=== PATIENT | male | born 1980 | race Caucasian/White ===

== ENCOUNTER 2017-06-25 13:55 | Emergency (ER) | payer MEDICAID ==
[2017-06-25 14:07] VITALS: RESP 16; O2SAT 95
[2017-06-25] MEDS ORDERED: LIDOCAINE 2% JELLY 5 ML TUBE ONE (14:39)
[2017-06-25] MEDS ORDERED: LIDOCAINE 2% JELLY 5 ML TUBE TP ONE (14:40)
--- NOTE | 2017-06-25 14:45 | EDPHY ---
H & P Time Seen by Provider: 06/25/17 14:06 HPI/ROS: CHIEF COMPLAINT: Hemorrhoid HISTORY OF PRESENT ILLNESS: Patient states he had a BM last night that was hard. Afterwards he felt some need to go BM again but was unable. This morning felt pain and a lump in the rectal area consistent with previous hemorrhoids. He has had 3 prior last was about a year ago. No other complaints. No nausea or vomiting. No bleeding per rectum. REVIEW OF SYSTEMS: Respiratory: No cough, no dyspnea. Cardiovascular: No chest pain, no palpitations. Gastrointestinal: No vomiting, no abdominal pain. General Appearance: Alert and no distress. Eyes: Pupils equal and round no injection. Gastrointestinal: Abdomen is soft and nontender, no masses, bowel sounds normal. Large external hemorrhoid visible, tender to palpation. Likely internal hemorrhoid visible at anus. Musculoskeletal: Neck is supple and nontender. Extremities have full range of motion and are nontender. Skin: No rashes or lesions. DIFFERENTIAL DIAGNOSIS: After history and physical exam differential diagnosis was considered for thrombosed hemorrhoid, internal hemorrhoid, rectal fissure, perirectal abscess. Patient would likely both internal and external hemorrhoid. Possibly thrombosed. Discussed conservative care with surgical follow-up as indicated on Tuesday. Medical history includes surgery to the hip as 4-year-old. Otherwise noncontributory. Patient uses tobacco, THC. No EtOH. 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 [employer] Smoking Status: Current every day smoker Constitutional: Initial Vital Signs Temperature (C) 36.7 C 06/25/17 14:03 Heart Rate 87 06/25/17 14:03 Respiratory Rate 16 06/25/17 14:03 Blood Pressure 144/87 H 06/25/17 14:03 O2 Sat (%) 95 06/25/17 14:03 Allergies/Adverse Reactions: Penicillins Allergy (Severe, Verified 06/25/17 14:07) Anaphylaxis acetaminophen [From Vicodin] Allergy (Verified 06/25/17 14:07) hydrocodone bitartrate [From Vicodin] Allergy (Verified 06/25/17 14:07) Home Medications: Medication Instructions Recorded NK [No Known Home Meds] 03/20/16 Departure - Departure Clinical Impression: Hemorrhoid prolapse Condition: Good Instructions: Thrombosed Hemorrhoid (ED) Additional Instructions: Use topical lidocaine as instructed. I would also recommend to use topical corticosteroid cream available anop-mly-posivme. Sitz baths frequently as discussed. Additionally you should use a stool softener like Dulcolax or Colace also available over the counter as directed on the packaging. Do not strain at stool. Call General surgery on Tuesday if symptoms persist. Referrals: BHARTI HARDIN [Primary Care Provider] - As per Instructions Tim Matias MD [Medical Doctor] - As per Instructions
[2017-06-25 15:22] VITALS: BP 133/76; PULSE 65; TEMP 98.2
== END 2017-06-25 15:02 | disposition home or self-care (01) ==
LOC: CED 13:55
DX: K64.8 Other hemorrhoids (principal); F17.200 Nicotine dependence, unspecified, uncomplicated

== ENCOUNTER 2017-12-10 15:01 | Emergency (ER) | payer MEDICAID ==
[2017-12-10] MEDS ORDERED: methylPREDNISolone SOD SUCC 125 MG/2 ML VIAL IVP ONE (15:31)
[2017-12-10] MEDS ORDERED: NS 1,000 ML IV ONE (15:31)
--- NOTE | 2017-12-10 15:38 | EDPHY ---
H & P Time Seen by Provider: 12/10/17 15:31 HPI/ROS: CHIEF COMPLAINT: Intense itching HISTORY OF PRESENT ILLNESS: This is a 37-year-old male who states that 3 days ago he started to developed itchy skin. He did not noticed any bites, rash, or hives. He did not have any exposure to any allergens. He has not tried any new medications, lotions, detergents. Nobody in his family has similar symptoms. He describes having itching on the top of his right foot. He has scratched at it so hard that he now has an open wound. Since that time the itching has spread to his right foot, legs, hands, and arms. He has tried Benadryl over-the -counter as well as calamine with no success. Patient reports no chronic medical problems. He denies any associated symptoms such as fevers or chills, no chest pain, no shortness of breath, no palpitations , no vomiting or diarrhea. No history of kidney issues, no history of liver abnormalities. No urinary complaints. No headache or lightheadedness. REVIEW OF SYSTEMS: A comprehensive 10 system review of systems was reviewed and is otherwise negative aside from elements mentioned in the history of present illness. PAST MEDICAL HISTORY: Patient denies. SOCIAL HISTORY: Smoked marijuana, denies illicit drug use. Denies alcohol use. 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 No other family members are sick. VITAL SIGNS: see nurse's notes. Slightly hypertensive. GENERAL: Well-developed, well-nourished, scratching continuously at his feet and hands. HEENT: Normal, no discharge or icterus, moist mucous membranes. No eyelid swelling. Throat is normal. No angioedema. Neck: supple, FROM. LUNGS: Clear to auscultation bilaterally, no wheezes, rhonchi or rales. CARDIAC: Regular rate and rhythm, no rubs, murmurs or gallops. ABDOMEN: Soft, nontender, nondistended, bowel sounds normal. BACK: No CVA tenderness. No vertebral tenderness. EXTREMITIES: No edema, FROM. NEURO: Alert and oriented, grossly nonfocal. SKIN: Warm and dry. Multiple excoriations and linear pattern on the tops of the feet, backs of the hands, upper arms. No vesicles are noted. No rash. No urticaria. I see nothing that looks like scabies burrows. No signs of secondary infection. Smoking Status: Current every day smoker Constitutional: Initial Vital Signs Temperature (C) 36.8 C 12/10/17 15:06 Heart Rate 94 12/10/17 15:06 Respiratory Rate 18 12/10/17 15:06 Blood Pressure 142/100 H 12/10/17 15:06 O2 Sat (%) 95 12/10/17 15:06 O2 Delivery Mode Room Air Allergies/Adverse Reactions: Penicillins Allergy (Severe, Verified 12/10/17 15:09) Anaphylaxis acetaminophen [From Vicodin] Allergy (Verified 12/10/17 15:09) hydrocodone bitartrate [From Vicodin] Allergy (Verified 12/10/17 15:09) Home Medications: Medication Instructions Recorded Permethrin 5% [Elimite 5%] 60 gm TP ONCE #1 cream 12/10/17 predniSONE 40 mg PO DAILY #6 tab 12/10/17 Medical Decision Making ED Course/Re-evaluation: IV placed and patient given normal saline. Labs were checked to evaluate for pruritus associated with systemic disease. In the meantime patient received Benadryl 50 mg IV as well as Solu-Medrol 125mg. Labs all unremarkable. Will advise treatment for possible scabies, plus symptomatic treatment with benadryl and steroids. F/U with PCP and/or dermatology if symptoms not improving. Differential Diagnosis: Diff dx considered included puritis from systemic disease, allergic reaction, eczema, scabies. - Data Points Laboratory Results: Laboratory Results 12/10/17 15:40 Medications Given: Discontinued Medications Diphenhydramine HCl (Benadryl Injection) 50 mg IVP EDNOW ONE Stop: 12/10/17 15:32 Last Admin: 12/10/17 15:52 Dose: 50 mg Sodium Chloride (Ns) 1,000 mls @ 0 mls/hr IV ONCE ONE; Wide Open PRN Reason: Protocol Stop: 12/10/17 15:32 Last Admin: 12/10/17 15:47 Dose: 1,000 mls Methylprednisolone Sodium Succinate (Solu-Medrol) 125 mg IVP EDNOW ONE Stop: 12/10/17 15:32 Last Admin: 12/10/17 15:52 Dose: 125 mg Point of Care Test Results: Chemistry 12/10/17 12/10/17 15:47 15:46 POC Sodium 141 mEq/L mEq/L (135-145) POC Potassium 3.8 mEq/L mEq/L (3.3-5.0) POC Chloride 105 mEq/L mEq/L (97-110) POC BUN 17 mg/dL mg/dL (7-23) POC Creatinine 0.8 mg/dL mg/dL (0.7-1.3) POC Glucose 110 mg/dL H mg/dL (70-100) POC Total Bilirubin 0.6 mg/dL mg/dL (0.1-1.4) POC GGT 23 IU/L IU/L (5-65) POC AST 50 IU/L IU/L (17-59) POC ALT 37 IU/L IU/L (21-72) POC Alk Phosphatase 64 IU/L IU/L (38-126) POC Total Protein 7.2 g/dL g/dL (6.3-8.2) POC Albumin 4.4 g/dL g/dL (3.5-5.0) POC Amylase 37 IU/L IU/L (30-110) ISTAT H&H 12/10/17 15:47 POC Hgb 16.0 gm/dL gm/dL (13.7-17.5) POC Hct 47 % % (40-51) Liver Function Tests LFT Collection Date 12/10/17 LFT Collection Time 15:40 Departure - Departure Disposition: Home, Routine, Self-Care Clinical Impression: Pruritic condition Condition: Fair Instructions: Scabies (ED), Itchy Skin (ED) Additional Instructions: No definitive cause of your itching has been identified. I recommend the followin. Take only short, cold showers. Being overheated oral hot shower may make the itching worse. 2. Apply soothing topical lotion such as Cetaphil or Cereve lotion to the general skin. 3. Apply topical hydrocortisone cream, 1%, to the worst areas of itching on the back of your hands and feet. 4. At night you may take Benadryl 50 mg to help you sleep and help with the itching. This may be taken every 6-8 hours but it will make you sleepy. 5. During the daytime or to avoid over-sedation, you may take the nonsedating antihistamine such as Claritin. 6. You have also been given a prescription for prednisone which is a steroid. Please take this as directed for the next 3 days. In case this actually represents a scabies infestation, please obtain over-the- counter scabies medication. Use this as directed. If you're not improving with the above treatment, please follow up with a character actor. You been given referral below. Be sure they know this is an emergency department follow-up visit. Or you may also follow up with her primary care physician. Referrals: NONE *PRIMARY CARE P,. [Primary Care Provider] - As per Instructions Lam Payan MD [Medical Doctor] - As per Instructions [facility],. [Clinic] - As per Instructions [facility] [Provider Group] - As per Instructions (Please call [facility] on follow-up as needed. Be sure they know this is an emergency department follow-up visit. ) Prescriptions: Permethrin 5% [Elimite 5%] 60 gm TP ONCE #1 cream predniSONE 40 mg PO DAILY #6 tab
[2017-12-10 16:22] VITALS: BP 160/77
[2017-12-10 17:30] LABS: PLATELET COUNT 330 10^3/uL (150-400)
== END 2017-12-10 16:25 | disposition home or self-care (01) ==
LOC: CED 15:01
DX: B86 Scabies (principal); E86.9 Volume depletion, unspecified; F17.200 Nicotine dependence, unspecified, uncomplicated
CPT/HCPCS: 80076-PO; 82150-PO; 82435-PO; 82565-PO; 82947-PO; 84132-PO; 84295-PO; 84520-PO; 85014-PO; 96374; J1200; J2930

== ENCOUNTER 2018-02-11 22:11 | Emergency (ER) | payer MEDICAID ==
--- NOTE | 2018-02-11 22:41 | EDPHY ---
H & P Time Seen by Provider: 02/11/18 22:19 HPI/ROS: CHIEF COMPLAINT: Finger pain History by patient HISTORY OF PRESENT ILLNESS: 37-year-old man right-hand dominant presents complaining of severe pain in his distal right index finger after slamming his fingers in his house door 8 hr ago. Patient was on his way to work and said he had to go to work so he worked all day and then came in because it continues to hurt despite taking several doses of ibuprofen. Patient says initially he had difficulty controlling the bleeding but it eventually stopped. He denies any numbness and complains of severe pain. REVIEW OF SYSTEMS: As in HPI, and all other systems reviewed and are negative Smoking Status: Current every day smoker Physical Exam: General Appearance: Alert, obese uncomfortable appearing. Head: Normocephalic, atraumatic Eyes: Pupils equal and round no injection. Extraocular movements are intact. Musculoskeletal: Neck is supple and nontender. Extremities: Right hand positive swelling around the middle MCP joint and index MCP joint but minimal tenderness and full range of motion of both joints, positive partial avulsion/linear laceration of 3mm of right index finger nail, no subungual hematoma, positive scant blood under distal nail, positive tenderness to nail and DIP joint no tenderness of the PIP joint. Distal sensation intact. Distal cap refill less than 2 sec. Full range of motion against resistance of both PIP and D IP joints. Skin: No rashes or lesions except as described above. Constitutional: Initial Vital Signs Temperature (C) 36.7 C 02/11/18 22:22 Heart Rate 83 02/11/18 22:22 Respiratory Rate 18 02/11/18 22:22 Blood Pressure 133/102 H 02/11/18 22:22 O2 Sat (%) 94 02/11/18 22:22 O2 Delivery Mode Room Air Allergies/Adverse Reactions: Penicillins Allergy (Severe, Verified 12/10/17 15:09) Anaphylaxis acetaminophen [From Vicodin] Allergy (Verified 12/10/17 15:09) hydrocodone bitartrate [From Vicodin] Allergy (Verified 12/10/17 15:09) Home Medications: Medication Instructions Recorded Permethrin 5% [Elimite 5%] 60 gm TP ONCE #1 cream 12/10/17 predniSONE 40 mg PO DAILY #6 tab 12/10/17 MDM/Departure - MDM Imaging Results: Imaging Impressions Hand X-Ray 02/11/18 22:20 Impression: Negative for fracture. Procedures: Ring block. Ring block was performed to right index finger with 0.5% Marcaine without complication. Patient tolerated the procedure well. ED Course/Re-evaluation: 37-year-old [id number] man presents with crush injury to right hand and nail injury. X-ray shows no evidence of fracture. Patient was complaining of significant pain and therefore a ring block was performed with good pain relief. Patient was discharged home in stable condition. - Depart Disposition: Home, Routine, Self-Care Clinical Impression: Finger nail contusion Qualifiers: Encounter type: initial encounter Qualified Code(s): S60.10XA - Contusion of unspecified finger with damage to nail, initial encounter Condition: Good Instructions: Contusion in Adults (ED) Additional Instructions: You were seen by Dr. Barbara Macario today. Your x-ray showed no evidence of fracture. You have crushed the tip of your nail. We have given you a finger nerve block to control the pain tonight. You may take ibuprofen and/or Tylenol tomorrow for pain. Keep the wound clean and wash with soap and water and soak in warm water. Watch for signs and symptoms of infection including but not limited to increased pain, pus, fever, swelling or redness Return for any worsening or new concerns. Stand Alone Forms: Work Excuse
[2018-02-11 22:52] VITALS: BP 135/87
== END 2018-02-11 22:53 | disposition home or self-care (01) ==
LOC: CED 22:11
PROC: 3E0T3BZ Introduction of Anesthetic Agent into Peripheral Nerves and Plexi, Percutaneous Approach (ICD-10-PCS; principal; 2018-02-11)
DX: S60.121A Contusion of right index finger with damage to nail, initial encounter (principal); W23.1XXA Caught, crushed, jammed, or pinched between stationary objects, initial encounter; Y92.9 Unspecified place or not applicable; Y93.9 Activity, unspecified; Y99.9 Unspecified external cause status
CPT/HCPCS: 73130-PO

== ENCOUNTER 2018-03-30 02:39 | Emergency (ER) | payer MEDICAID ==
[2018-03-30] MEDS ORDERED: ONDANSETRON DISINTEGRATING 4 MG TAB PO ONE (03:13)
[2018-03-30] MEDS ORDERED: ONDANSETRON DISINTEGRATING 4 MG TAB ONE (03:15)
[2018-03-30] MEDS ORDERED: NS 1,000 ML IV SCH (03:15)
--- NOTE | 2018-03-30 03:16 | EDPHY ---
H & P Stated Complaint: c/o fevers/upset stomach/seeing things that wernt there last night Time Seen by Provider: 03/30/18 02:50 HPI/ROS: CHIEF COMPLAINT: Almost passed out, nausea vomiting diarrhea for 24 hr HISTORY OF PRESENT ILLNESS: 37-year-old otherwise healthy overweight male reports feeling well through the day [place] on the . At around 10:00 p.m. That night he stopped by his place of work just to visit. However, once he got home"it hit him". He was a sense that he had profound fatigue along with body aches and a sense of chilling. He had a rough night all night as he felt so unwell with the bilateral back aches without dysuria both also the sense of chills. There was 1 or 2 episodes of dry heaving last night. Through the day today he was equally uncomfortable roaming from couch to bed with chills and probable fevers. However he did have an episode or 2 of dry heaving but was able to drink the whole full L of adilene rebecca. Tonight, he went to work. Shift started 10:00 p.m. Till 7:00 a.m.. He works at a [employer]. He went to the back room was cleaning up some dishes. He was not been sitting. At approximately 12:30 p.m.,Arely came back out to the front at that time he was overcome by sense of near syncope as if he was to pass out as well as a sense of the room going Blue, is a he is came over things.. He was able to sit down and have a resolved. He knew it could last shift thus he called for replacement - while waiting he ensued with some 3 liquid stools of mild brown without any green or black. Further he had several episodes of dry heaves. On his way home came here for evaluation as he felt so miserable and had almost passed out. Of note is week been having a moderate outbreak of influenza and even some norovirus. However, he cannot recall anything specific that he has been exposed to. Further: No recent travel No antibiotics No one else ill No seasonal influenza = as he has a local reaction due to it so he does not take it No bad food sources or water sources He has had no cough or phlegm or wheezing REVIEW OF SYSTEMS: Constitutional: No fever, no chills. Eyes: No discharge ENT: No sore throat. Cardiovascular: No chest pain, no palpitations. Respiratory: No cough, shortness of breath, or wheezing. Gastrointestinal: See above Genitourinary: No hematuria or frequency. Musculoskeletal: No back pain. Skin: No rashes. Neurological: No headache. A 10 system review of systems was performed and is negative except for the noted findings in the HPI. Source: Patient Exam Limitations: No limitations - Personal History Current Tetanus Diphtheria and Acellular Pertussis (TDAP): Yes Tetanus Vaccine Date: 2010 - Medical/Surgical History Hx Asthma: No Hx Chronic Respiratory Disease: No Hx Diabetes: No Hx Cardiac Disease: No Hx Renal Disease: No Hx Cirrhosis: No Hx Alcoholism: No Hx HIV/AIDS: No Hx Splenectomy or Spleen Trauma: No Other PMH: HIP SURG CHILD,oral surgery - Social History Smoking Status: Current every day smoker Alcohol Use: None Drug Use: None - Physical Exam Exam: General Appearance: Alert, no distress. Febrile, feels warm to the touch, not clammy, however temperature is 100.7, on my exam, taking by me. Normal phonation. No respiratory distress. Eyes: Pupils equal and round no pallor or injection. No icterus ENT, Mouth: Mucous membranes moderately dry Pharynx without erythema or exudate. TM Clear. Neck: No adenopathy. Supple. No JVD. Trachea in midline. Respiratory: There are no retractions, lungs are clear to auscultation. Cardiovascular: Regular rate and rhythm. No murmur. Abdomen: Soft and nontender, no masses, bowel sounds normal. . Neurological: Ox3. No motor weakness. Sensation intact. Gait nl. Skin: Warm and dry, no rashes. Musculoskeletal: No joint swelling. Extremities: No edema. Homans sign negative. No cords. Psychiatric: Normal affect. Patient is oriented X 3. There is no agitation Constitutional: Initial Vital Signs Temperature (C) 37.8 C 03/30/18 02:44 Heart Rate 96 03/30/18 02:44 Respiratory Rate 20 03/30/18 02:44 Blood Pressure 144/57 H 03/30/18 02:44 O2 Sat (%) 94 03/30/18 02:44 O2 Delivery Mode Room Air Allergies/Adverse Reactions: Penicillins Allergy (Severe, Verified 12/10/17 15:09) Anaphylaxis acetaminophen [From Vicodin] Allergy (Verified 12/10/17 15:09) hydrocodone bitartrate [From Vicodin] Allergy (Verified 12/10/17 15:09) Home Medications: Medication Instructions Recorded Ondansetron Odt [Zofran Odt 4 mg 4 mg PO Q4 PRN #4 tab 03/30/18 (*)] Oseltamivir Phosphate [Tamiflu 75 75 mg PO BID #10 cap 03/30/18 mg (*)] Medical Decision Making ED Course/Re-evaluation: Interestingly, his clinical course sounds more loosely of a norovirus however his influenza a was positive. Certainly a fair amount of H1N1 has been having GI symptoms as well. Thus will go ahead and hydrated with a L of saline, 8 mg ODT Zofran, and prescribe also Oseltamavir. Differential Diagnosis: Diagnostic considerations include, but are not limited to, the following: URI, sinusitis, pharyngitis, otitis media, allergy, influenza, Pneumonia, bronchitis, Influenza, Gastroenteritis, dehydration, gastritis, mesenteric adenitis, food poisoning, bacterial dysentery. - Data Points Medications Given: Discontinued Medications Sodium Chloride (Ns) 1,000 mls @ 0 mls/hr IV ONCE ONE PRN Reason: Wide Open Stop: 03/30/18 03:39 Last Admin: 03/30/18 03:42 Dose: 1,000 mls Ondansetron HCl (Zofran Odt) 8 mg PO EDNOW ONE Stop: 03/30/18 03:14 Last Admin: 03/30/18 03:37 Dose: 8 mg Ondansetron HCl (Zofran Odt 4 Mg Prepack#2) 1 btl TAKEHOME EDNOW ONE Stop: 03/30/18 03:49 Last Admin: 03/30/18 04:30 Dose: 1 btl Oseltamivir Phosphate (Tamiflu) 75 mg PO EDNOW ONE Stop: 03/30/18 03:49 Last Admin: 03/30/18 04:30 Dose: 75 mg Point of Care Test Results: Influenza PCR Flu Nasal Swab Collection Date 03/30/18 Flu Nasal Swab Collection Time 02:50 Influenza A Result Detected Influenza B Result Not Detected Departure - Departure Disposition: Home, Routine, Self-Care Clinical Impression: Dehydration, moderate, Near syncope, Gastroenteritis, Influenza A Condition: Good Instructions: Dehydration (ED), Influenza (ED), Gastroenteritis (ED), Near Syncope (ED) Additional Instructions: Who tested positive for influenza A. This means that you have been contagious for the last 48 hr and will be contagious for another 5 days. Is important that you do not work during that time even if he began to feel better, as he will be very contagious to the public. See the work note cover you to ill April 03. We treat the influenza with oseltamivir. It will shorten the course by a day, but will not markedly make you feel much better. If her family members become ill in the next 48-72 hours they should notify their family physicians they were exposed to you who had influenza. For the nausea, as it is critical to hydrate, you will have Zofran available for vomiting and nausea. It is okay to treat the diarrhea with Imodium, [id number] Referrals: Patient,NotPresent [Unknown] - As per Instructions Stand Alone Forms: Work Excuse Prescriptions: Ondansetron Odt [Zofran Odt 4 mg (*)] 4 mg PO Q4 PRN #4 tab PRN Reason: Nausea or vomiting Oseltamivir Phosphate [Tamiflu 75 mg (*)] 75 mg PO BID #10 cap
[2018-03-30] MEDS ORDERED: NS 1,000 ML IV ONE (03:38)
[2018-03-30] MEDS ORDERED: OSELTAMIVIR PHOSPHATE 75 MG CAP PO ONE (03:48)
[2018-03-30] MEDS ORDERED: ONDANSETRON 4MG PREPACK#2 BTL TAKEHOME ONE (03:48)
[2018-03-30 04:32] VITALS: BP 142/68
== END 2018-03-30 04:31 | disposition home or self-care (01) ==
LOC: CED 02:39
DX: J10.1 Influenza due to other identified influenza virus with other respiratory manifestations (principal); K52.9 Noninfective gastroenteritis and colitis, unspecified; R55 Syncope and collapse; E86.0 Dehydration; F17.200 Nicotine dependence, unspecified, uncomplicated; Z88.0 Allergy status to penicillin